=== PATIENT | female | born 1965 | race Caucasian/White ===

== ENCOUNTER 2021-08-01 14:18 | Inpatient (IN) ==
[2021-08-01 18:30] LABS: Basophils # 0.1 K/mcL (0.0-0.2); Basophils % 0.5 %; Eosinophils # 0.1 K/mcL (0.0-0.6); Eosinophils % 0.8 %; Hematocrit 43.3 % (35.3-44.9); Hemoglobin 14.2 g/dL (11.5-15.4); Immature Granulocytes % 0.4 % (0-4); Lymphocytes # 3.4 K/mcL (0.6-4.6); Lymphocytes % 24.7 %; Mean Corpuscular HGB Conc 32.8 g/dL (31.6-35.5); Mean Corpuscular Hemoglobin 30.7 pg (28.0-33.3); Mean Corpuscular Volume 93.7 fL (83.0-100.0); Mean Platelet Volume 10.6 fL (9.4-12.4); Monocytes # 0.7 K/mcL (0.0-1.3); Monocytes % 5.3 %; Neutrophils # 9.4 K/mcL (1.6-8.9); Platelet Count 367 K/mcL (140-400); Red Blood Count 4.62 M/mcL (3.82-4.97); Red Cell Distribution Width 13.8 % (11.5-14.5); Segmented Neutrophils % 68.3 %; White Blood Count 13.7 K/mcL (4.3-11.1)
[2021-08-01 18:50] LABS: BUN/Creatinine Ratio 25 (6-26); Blood Urea Nitrogen 16 mg/dL (6-20); C-Reactive Protein 30 mg/L (Less than 10); Calcium 9.8 mg/dL (8.6-10.3); Carbon Dioxide 27 mEq/L (23-29); Chloride 104 mEq/L (98-107); Glucose 104 mg/dL (70-105); Osmolality,Calculated 287 (280-300); Potassium 3.7 mEq/L (3.5-5.1); Sodium 138 mEq/L (136-145); eGFR For African Americans > 60 (> 60); eGFR For Non-African Americans > 60 (> 60)
[2021-08-01] MEDS: 0.9 % Sodium Chloride 1,000 ML IVC SCH (19:52)
[2021-08-01] MEDS ORDERED: Piperacillin/Tazobactam 3.375 GM in 0.9 % Sodium Chloride Mini Bag 100 ML IVPB ONE (20:20)
[2021-08-01] MEDS ORDERED: Vancomycin 1,500 MG/265 ML IV.SOLN IVPB ONE (20:20)
[2021-08-01] MEDS ORDERED: Melatonin 3 MG TABLET PO PRN (22:38)
[2021-08-01] MEDS ORDERED: Ondansetron 4 MG/2 ML VIAL IVP PRN (22:38)
[2021-08-01] MEDS ORDERED: Naloxone 0.4 MG/ML INJ IVP PRN (22:38)
[2021-08-01] MEDS ORDERED: Acetaminophen 325 MG TABLET PO PRN (22:38)
[2021-08-01] MEDS ORDERED: Dextrose 4 GM Chewable Tablets PO PRN ×2 (22:39)
[2021-08-01] MEDS ORDERED: *HR* Dextrose 50 % in Water (Syg) 50 ML SYRINGE IVP PRN (22:39)
[2021-08-01] MEDS ORDERED: D5% in Water 1,000 ML IVC PRN (22:39)
[2021-08-02] MEDS: Insulin LISPRO 300 UNITS/3 ML VIAL SUBQ SCH ×5 (00:21→22:01)
[2021-08-02] MEDS: 0.9 % Sodium Chloride 1,000 ML IVC SCH (05:43)
[2021-08-02 06:35] LABS: Basophils % 0.4 %; Eosinophils # 0.1 K/mcL (0.0-0.6); Eosinophils % 0.8 %; Hematocrit 38.9 % (35.3-44.9); Immature Granulocytes % 0.4 % (0-4); Lymphocytes # 2.3 K/mcL (0.6-4.6); Lymphocytes % 24.7 %; Mean Corpuscular HGB Conc 32.1 g/dL (31.6-35.5); Mean Corpuscular Hemoglobin 30.6 pg (28.0-33.3); Mean Corpuscular Volume 95.3 fL (83.0-100.0); Mean Platelet Volume 10.9 fL (9.4-12.4); Monocytes # 0.5 K/mcL (0.0-1.3); Monocytes % 5.7 %; Neutrophils # 6.3 K/mcL (1.6-8.9); Platelet Count 271 K/mcL (140-400); Red Blood Count 4.08 M/mcL (3.82-4.97); Red Cell Distribution Width 13.8 % (11.5-14.5); White Blood Count 9.3 K/mcL (4.3-11.1)
[2021-08-02 06:42] LABS: Prothrombin Time 11.6 Seconds (9.4-12.1)
[2021-08-02 06:43] LABS: Hemoglobin 12.5 g/dL (11.5-15.4)
[2021-08-02 06:45] LABS: Activated Partial Thrombo Time 27.7 Seconds (26.0-36.0)
[2021-08-02 06:56] LABS: Alanine Aminotransferase 14 Units/L (7-52); Albumin 3.2 g/dL (3.5-5.7); Albumin/Globulin Ratio 1.3 (1.1-2.2); Alkaline Phosphatase 61 Units/L (34-104); Aspartate Amino Transferase 10 Units/L (13-39); BUN/Creatinine Ratio 19 (6-26); Bilirubin,Total 0.3 mg/dL (0.3-1.0); Blood Urea Nitrogen 14 mg/dL (6-20); Calcium 8.4 mg/dL (8.6-10.3); Carbon Dioxide 29 mEq/L (23-29); Chloride 104 mEq/L (98-107); Globulin 2.4 g/dL (2.4-3.5); Glucose 273 mg/dL (70-105); Magnesium 1.5 mg/dL (1.6-2.6); Osmolality,Calculated 296 (280-300); Phosphorous 3.2 mg/dL (2.7-4.5); Potassium 3.7 mEq/L (3.5-5.1); Sodium 138 mEq/L (136-145); Total Protein 5.6 g/dL (6.4-8.9); eGFR For African Americans > 60 (> 60); eGFR For Non-African Americans > 60 (> 60)
[2021-08-02] MEDS: Vancomycin 1,500 MG/265 ML IV.SOLN IVPB SCH ×2 (10:07→22:00)
[2021-08-02] MEDS: Gabapentin 400 MG CAPSULE PO SCH ×3 (10:07→20:37)
[2021-08-02] MEDS: Piperacillin/Tazobactam 3.375 GM in 0.9 % Sodium Chloride Mini Bag 100 ML IVPB SCH ×2 (10:08→16:33)
[2021-08-02] MEDS ORDERED: Insulin DETEMIR 100 UNIT/ML X5UNITS SUBQ SCH (14:00)
[2021-08-02] MEDS ORDERED: NON-FORMULARY MEDICATION 1 EACH EACH (Gabapentin [Neurontin] 800 MG Tablet) PO SCH (15:00)
[2021-08-02] MEDS ORDERED: Insulin LISPRO 300 UNITS/3 ML VIAL SUBQ SCH ×4 (17:57→21:00)
[2021-08-03] MEDS: Piperacillin/Tazobactam 3.375 GM in 0.9 % Sodium Chloride Mini Bag 100 ML IVPB SCH ×4 (00:45→23:35)
[2021-08-03] MEDS: *HR* Enoxaparin 40 MG/0.4 ML SYRINGE SQ SCH (04:45)
[2021-08-03 04:49] LABS: Basophils # 0.1 K/mcL (0.0-0.2); Basophils % 0.7 %; Eosinophils # 0.1 K/mcL (0.0-0.6); Eosinophils % 0.7 %; Hematocrit 39.4 % (35.3-44.9); Hemoglobin 12.7 g/dL (11.5-15.4); Immature Granulocytes % 0.8 % (0-4); Lymphocytes % 23.5 %; Mean Corpuscular HGB Conc 32.2 g/dL (31.6-35.5); Mean Corpuscular Hemoglobin 30.3 pg (28.0-33.3); Monocytes # 0.5 K/mcL (0.0-1.3); Monocytes % 5.4 %; Neutrophils # 5.8 K/mcL (1.6-8.9); Platelet Count 259 K/mcL (140-400); Red Blood Count 4.19 M/mcL (3.82-4.97); Red Cell Distribution Width 13.7 % (11.5-14.5); Segmented Neutrophils % 68.9 %; White Blood Count 8.5 K/mcL (4.3-11.1)
[2021-08-03 05:09] LABS: BUN/Creatinine Ratio 27 (6-26); Blood Urea Nitrogen 20 mg/dL (6-20); Calcium 8.5 mg/dL (8.6-10.3); Carbon Dioxide 26 mEq/L (23-29); Chloride 104 mEq/L (98-107); Glucose 341 mg/dL (70-105); Osmolality,Calculated 304 (280-300); Potassium 4.2 mEq/L (3.5-5.1); Sodium 139 mEq/L (136-145); eGFR For African Americans > 60 (> 60); eGFR For Non-African Americans > 60 (> 60)
[2021-08-03] MEDS ORDERED: Ringers Solution, Lactated 1,000 ML IVC SCH (07:30)
[2021-08-03] MEDS ORDERED: Lidocaine -MPF 2% 5 ML VIAL ONE (07:38)
[2021-08-03] MEDS ORDERED: *HR* FentaNYL (PF) 100 MCG/2 ML VIAL ONE (07:43)
[2021-08-03] MEDS ORDERED: *HR* Propofol 200 MG/20 ML VIAL IVP ONE (08:12)
[2021-08-03] MEDS ORDERED: Insulin DETEMIR 100 UNIT/ML X5UNITS SUBQ SCH (09:00)
[2021-08-03] MEDS ORDERED: NON-FORMULARY MEDICATION 1 EACH EACH (Omega-3/Dha/Epa/Fish Oil [Fish Oil 1,000 Mg Softgel] PO SCH (09:00)
[2021-08-03] MEDS: Insulin LISPRO 300 UNITS/3 ML VIAL SUBQ SCH ×6 (11:24→21:31)
[2021-08-03] MEDS: Gabapentin 400 MG CAPSULE PO SCH ×3 (11:25→21:18)
[2021-08-03] MEDS: amLODIPine 5 MG TABLET PO SCH (11:25)
[2021-08-03] MEDS: atenoloL 50 MG TABLET PO SCH (11:25)
[2021-08-03] MEDS: Aspirin Enteric Coated 81 MG Tablet PO SCH (11:25)
[2021-08-03] MEDS: Insulin DETEMIR 100 UNIT/ML X5UNITS SUBQ SCH ×2 (11:25→21:31)
[2021-08-03] MEDS: Cholecalciferol (D-3) 1,000 UNIT (25MCG) TABLET PO SCH (11:26)
[2021-08-03] MEDS: hydrOXYzine pamoate 25 MG CAPSULE PO PRN ×2 (12:45→21:19)
[2021-08-03 14:15] LABS: Estimated Average Glucose 252 mg/dl; Hemoglobin A1C 10.4 %
[2021-08-03] MEDS: Vancomycin 2,000 MG/520 ML IV.SOLN IVPB SCH ×2 (14:24→23:34)
[2021-08-03] MEDS ORDERED: Acetaminophen IV 1,000 MG/100 ML BAG IVPB SCH (18:00)
[2021-08-04] MEDS: Acetaminophen IV 1,000 MG/100 ML BAG IVPB SCH ×6 (03:32→23:12)
[2021-08-04] MEDS: *HR* Enoxaparin 40 MG/0.4 ML SYRINGE SQ SCH (06:32)
[2021-08-04] MEDS: Insulin LISPRO 300 UNITS/3 ML VIAL SUBQ SCH ×7 (08:02→20:55)
[2021-08-04] MEDS: Cholecalciferol (D-3) 1,000 UNIT (25MCG) TABLET PO SCH (08:12)
[2021-08-04] MEDS: Gabapentin 400 MG CAPSULE PO SCH ×3 (08:12→20:54)
[2021-08-04] MEDS: Aspirin Enteric Coated 81 MG Tablet PO SCH (08:12)
[2021-08-04] MEDS: atenoloL 50 MG TABLET PO SCH (08:13)
[2021-08-04] MEDS: amLODIPine 5 MG TABLET PO SCH (08:13)
[2021-08-04] MEDS: Piperacillin/Tazobactam 3.375 GM in 0.9 % Sodium Chloride Mini Bag 100 ML IVPB SCH ×2 (08:13→16:03)
[2021-08-04 08:33] LABS: Basophils # 0.1 K/mcL (0.0-0.2); Basophils % 0.8 %; Eosinophils # 0.1 K/mcL (0.0-0.6); Eosinophils % 1.1 %; Hematocrit 39.9 % (35.3-44.9); Hemoglobin 12.9 g/dL (11.5-15.4); Immature Granulocytes % 0.8 % (0-4); Lymphocytes # 2.2 K/mcL (0.6-4.6); Lymphocytes % 28.4 %; Mean Corpuscular HGB Conc 32.3 g/dL (31.6-35.5); Mean Corpuscular Hemoglobin 30.6 pg (28.0-33.3); Mean Corpuscular Volume 94.8 fL (83.0-100.0); Mean Platelet Volume 11.5 fL (9.4-12.4); Monocytes # 0.4 K/mcL (0.0-1.3); Monocytes % 5.3 %; Platelet Count 279 K/mcL (140-400); Red Blood Count 4.21 M/mcL (3.82-4.97); Red Cell Distribution Width 13.8 % (11.5-14.5); Segmented Neutrophils % 63.6 %; White Blood Count 7.9 K/mcL (4.3-11.1)
[2021-08-04 08:46] LABS: BUN/Creatinine Ratio 23 (6-26); Blood Urea Nitrogen 20 mg/dL (6-20); Carbon Dioxide 23 mEq/L (23-29); Chloride 104 mEq/L (98-107); Glucose 392 mg/dL (70-105); Osmolality,Calculated 301 (280-300); Potassium 4.1 mEq/L (3.5-5.1); Sodium 136 mEq/L (136-145); eGFR For African Americans > 60 (> 60); eGFR For Non-African Americans > 60 (> 60)
[2021-08-04] MEDS: Insulin DETEMIR 100 UNIT/ML X5UNITS SUBQ SCH ×2 (10:17→20:54)
[2021-08-04] MEDS: Vancomycin 2,000 MG/520 ML IV.SOLN IVPB SCH ×2 (12:47→23:12)
[2021-08-04] MEDS: Lactobacillus 1 EACH CAP.SPRINK PO SCH (12:48)
[2021-08-05] MEDS: Piperacillin/Tazobactam 3.375 GM in 0.9 % Sodium Chloride Mini Bag 100 ML IVPB SCH ×2 (00:23→09:19)
[2021-08-05] MEDS: hydrOXYzine pamoate 25 MG CAPSULE PO PRN ×2 (01:46→09:31)
[2021-08-05 03:56] VITALS: TEMP 97.5
[2021-08-05 05:22] LABS: Basophils # 0.1 K/mcL (0.0-0.2); Basophils % 0.7 %; Eosinophils # 0.1 K/mcL (0.0-0.6); Eosinophils % 1.2 %; Hematocrit 40.8 % (35.3-44.9); Hemoglobin 13.4 g/dL (11.5-15.4); Immature Granulocytes % 0.6 % (0-4); Lymphocytes # 2.5 K/mcL (0.6-4.6); Lymphocytes % 26.3 %; Mean Corpuscular HGB Conc 32.8 g/dL (31.6-35.5); Mean Corpuscular Hemoglobin 30.7 pg (28.0-33.3); Mean Corpuscular Volume 93.4 fL (83.0-100.0); Mean Platelet Volume 11.2 fL (9.4-12.4); Monocytes # 0.5 K/mcL (0.0-1.3); Monocytes % 4.8 %; Neutrophils # 6.4 K/mcL (1.6-8.9); Platelet Count 271 K/mcL (140-400); Red Blood Count 4.37 M/mcL (3.82-4.97); Red Cell Distribution Width 13.4 % (11.5-14.5); Segmented Neutrophils % 66.4 %; White Blood Count 9.7 K/mcL (4.3-11.1)
[2021-08-05] MEDS: Acetaminophen IV 1,000 MG/100 ML BAG IVPB SCH ×2 (06:20→12:33)
[2021-08-05] MEDS: *HR* Enoxaparin 40 MG/0.4 ML SYRINGE SQ SCH (06:21)
[2021-08-05 07:31] LABS: BUN/Creatinine Ratio 30 (6-26); Blood Urea Nitrogen 25 mg/dL (6-20); Carbon Dioxide 26 mEq/L (23-29); Chloride 103 mEq/L (98-107); Glucose 251 mg/dL (70-105); Osmolality,Calculated 295 (280-300); Potassium 3.9 mEq/L (3.5-5.1); Sodium 136 mEq/L (136-145); eGFR For African Americans > 60 (> 60); eGFR For Non-African Americans > 60 (> 60)
[2021-08-05] MEDS ORDERED: Furosemide 20 MG TABLET PO PRN (07:56)
[2021-08-05] MEDS: Insulin LISPRO 300 UNITS/3 ML VIAL SUBQ SCH ×4 (08:30→12:32)
[2021-08-05] MEDS ORDERED: *HR* Metformin 500 MG TABLET PO SCH (08:45)
[2021-08-05] MEDS ORDERED: Insulin DETEMIR 100 UNIT/ML X5UNITS SUBQ SCH (09:00)
[2021-08-05] MEDS: Aspirin Enteric Coated 81 MG Tablet PO SCH (09:05)
[2021-08-05] MEDS: Lactobacillus 1 EACH CAP.SPRINK PO SCH (09:05)
[2021-08-05] MEDS: Cholecalciferol (D-3) 1,000 UNIT (25MCG) TABLET PO SCH (09:05)
[2021-08-05] MEDS: amLODIPine 5 MG TABLET PO SCH (09:05)
[2021-08-05] MEDS: Gabapentin 400 MG CAPSULE PO SCH ×2 (09:05→14:13)
[2021-08-05] MEDS: atenoloL 50 MG TABLET PO SCH (09:07)
[2021-08-05 10:26] VITALS: BP 155/93; PULSE 78; O2SAT 98
[2021-08-05] MEDS: Vancomycin 2,000 MG/520 ML IV.SOLN IVPB SCH (11:44)
== END 2021-08-05 15:20 | disposition home or self-care (01) | DRG 710 ==
LOC: 4WAOSI 14:18 → EMEROOARM 14:18 → SUATTDRO 20:39 → 4WAOSI 22:00
PROVIDERS: ADMIT Internal Medicine; ATTEND Internal Medicine